=== PATIENT | male | born 1950 | race Caucasian/White ===

== ENCOUNTER → 2024-03-25 | Outpatient (CLI) | payer MEDICARE, OTHER, SELFPAY ==
--- NOTE | 2024-03-25 16:30 | XR_ITS ---
Examination: CT abdomen and pelvis without contrast. Coronal 3-D reconstructions. Sagittal 2-D reconstructions. Date and time of exam:March 25, 2024 1629 hours INDICATIONS: Generalized abdominal pain and constipation beginning one month ago CTDI: vol (mGy): 8.69 DLP: (mGycm): 540 Technique: Axial images of the abdomen have been obtained, 3 mm slice thickness Intravenous contrast material has not been administered. Low dose protocols were performed. One or more of the following dose reduction techniques were used; automated exposure control, adjustment of the mA and/or KV according to patient size, use of iterative reconstruction technique. Findings: Mild enlargement cardiac contour No focal liver or splenic lesions Mild hyperdensities in the gallbladder 2 mm pancreatic calcification No adrenal mass Mild bilateral renal parenchymal scar formation No renal or ureteral calculi Normal appendix No bowel obstruction Colonic diverticulosis, no diverticulitis Contracted urinary bladder with wall thickening up to 17 mm Significant prostatomegaly, 5.8 cm Small fat-containing right inguinal hernia Advanced degenerative disc disease lumbar spine with prominent osteopenia Moderate to advanced hip osteoarthritis IMPRESSION: Recommend hepatobiliary sonography to exclude gallstones Marked thickening of the urinary bladder wall up to 17 mm with significant prostatomegaly 5.8 cm, differential for the bladder wall thickening would include cystitis, urinary tract outflow obstruction secondary to the prostatomegaly, bladder carcinoma less likely but not excluded, clinical correlation advised
== END | disposition home or self-care (01) ==
LOC: CCTX 16:03
PROVIDERS: PCP Family Medicine; Referring Provider Internal Medicine; Visit Provider Internal Medicine
DX: N32.89 Other specified disorders of bladder (principal); N40.0 Benign prostatic hyperplasia without lower urinary tract symptoms
CPT/HCPCS: 74176

== ENCOUNTER → 2024-06-01 | Outpatient (CLI) | payer MEDICARE, OTHER, SELFPAY ==
--- NOTE | 2024-06-01 16:58 | XR_ITS ---
Examination: Bilateral wrists 6 views TECHNIQUE: AP oblique lateral each wrist total 6 views Exam date and time: May 24, 2024 1800 hours INDICATIONS: Bilateral wrist pain 2 months. FINDINGS: Significant osteopenia Left hand advanced narrowing radiocarpal and first carpometacarpal joints No fracture or avascular necrosis Right hand advanced narrowing radiocarpal navicular trapezium first carpometacarpal joints Significant arthritic change second third and fourth metacarpophalangeal joints No acute fracture Soft tissue vascular calcification IMPRESSION: Bilateral significant arthritic change as above
--- NOTE | 2024-06-01 16:58 | XR_ITS ---
Examination: Bilateral hands, 6 views. Technique: AP, Oblique, Lateral each hand total 6 views Date and time of exam: June 01, 2024 1753 hours INDICATIONS: Bilateral hand and wrist pain 2 months Findings: Significant osteopenia Right hand fusion anomalies involving the second third and fourth digits no discrete phalanges Advanced narrowing radiocarpal joint No acute fracture Significant arthritic change involving the metacarpophalangeal joints as well as intercarpal joints Left hand osteoarthritis involving the interphalangeal joints, especially the distal interphalangeal joints second third and fourth digits Advanced arthritic change first carpometacarpal joint Advanced narrowing radiocarpal joint No fracture IMPRESSION: Right hand digit fusion anomalies Significant arthritic change of both hands as above
== END | disposition home or self-care (01) ==
LOC: CDIM 16:48
DX: M25.531 Pain in right wrist (principal); M25.532 Pain in left wrist; M13.842 Other specified arthritis, left hand; M13.841 Other specified arthritis, right hand
CPT/HCPCS: 73110; 73130

== ENCOUNTER 2024-06-15 07:50 | Day surgery (SDC) | payer MEDICARE, OTHER, SELFPAY ==
[2024-06-11 11:33] VITALS: BMI 35.7
[2024-06-11 12:28] LABS: Basophils # (Auto) 0.1 Thou/mm3 (0.0-0.2); Basophils % (Auto) 2 % (0-2.5); Eosinophils # (Auto) 0.2 Thou/mm3 (0.0-0.5); Eosinophils % (Auto) 3 % (0-10); Hematocrit 42.4 % (41.0-53.0); Hemoglobin 14.1 g/dL (13.5-16.0); Immature Granulocytes % (Auto) 0 % (0-0); Immature Granulocytes Auto 0.03 Thou/mm3 (0.00-0.00); Lymphocytes # (Auto) 1.5 Thou/mm3 (1.0-4.8); Lymphocytes % (Auto) 21 % (10-50); Mean Corpuscular HGB Conc 33.3 g/dl (31.0-37.0); Mean Corpuscular Volume 84 fL (80-100); Monocytes # (Auto) 0.7 Thou/mm3 (0.0-0.8); Monocytes % (Auto) 10 % (0-12); Neutrophils # (Auto) 4.6 Thou/mm3 (1.8-7.7); Neutrophils % (Auto) 64 % (37-80); Nucleated Red Blood Cell % 0 /100 WBC (0); Platelet Count 307 Thou/mm3 (140-440); RDW Standard Deviation 42.1 fL (35.1-43.9); Red Blood Count 5.04 Miln/mm3 (4.50-5.90); White Blood Count 7.2 Thou/mm3 (3.8-10.6)
[2024-06-11 12:34] LABS: Prothrombin Time 11.1 Seconds (9.0-12.2)
[2024-06-11 12:37] LABS: Alanine Aminotransferase 12 U/L (10-49); Albumin, Serum 4.3 gm/dL (3.4-4.8); Albumin/Globulin Ratio 1.5 (1.2-2.2); Alkaline Phosphatase 93 U/L (46-116); Anion Gap 7 (7-16); Aspartate Amino Transferase 18 U/L (0-34); BUN/Creatinine Ratio 20 Ratio (12-20); Bilirubin,Total 0.6 mg/dL (0.3-1.2); Blood Urea Nitrogen 20 mg/dL (9-23); Calcium 9.6 mg/dL (8.3-10.6); Calcium (Corrected) 9.6 mg/dL (8.5-10.1); Carbon Dioxide 27.2 mMol/L (20.0-31.0); Chloride 104 mMol/L (98-107); Estimated Creatinine Clearance 80.3 mL/min (>60); Globulin 2.9 gm/dL (2.3-3.5); Glucose 96 mg/dL (74-106); Osmolality,Calculated 278 (275-295); Potassium 4.6 mMol/L (3.4-5.1); Sodium 138 mMol/L (136-145); Total Protein 7.2 gm/dL (5.7-8.2); eGFR > 60 See Note
[2024-06-15] VITALS (7 sets, daily range): BP systolic 122–152; BP diastolic 71–89; PULSE 58–64; RESP 13–20; TEMP 36.2–36.6; O2SAT 94–97; BMI 34.9
[2024-06-15] MEDS: RINGERS LACTATED 1000 ML 1,000 ML 20 ML IV (08:40)
--- NOTE | 2024-06-15 10:43 | SUR.PHASEI ---
1043-Pt. AAOx4, vitals stable, breathing unlabored, no complaint of pain or nausea, dressing to right lower ABD CDI, no active bleed noted, report received from MD Guerin and Karen LOOMIS.
--- NOTE | 2024-06-15 10:51 | PD.SUROPNT ---
Date of Procedure 06/15/24 Pre Op Diagnosis Right inguinal hernia Post Op Diagnosis Indirect right inguinal hernia Procedure Right inguinal hernia repair with mesh Findings Patient was noted to have indirect right inguinal hernia sac Procedure Description Patient brought into the operating room in supine position. After administration of general endotracheal anesthesia, patient's right groin was shaved, prepped and draped in standard surgical manner. The right inguinal crease was anesthetized with half percent Marcaine. An approximately 8 cm incision was made and dissection was carried to subcutaneous tissue. The Clinton's fascia was divided and the external oblique aponeurosis was opened towards the external ring. The hernia sac and the spermatic cord structures were from the posterior aspect of the external oblique aponeurosis at the level of pubic tubercle. The hernia sac was then meticulously dissected off the spermatic cord structures at the level of internal ring. Patient was noted to have indirect right inguinal hernia sac. The hernia sac was then ligated at the level of internal ring. The floor of inguinal canal was then reconstructed with ultra Pro proceed mesh. The mesh was secured with running 2-0 Prolene suture. The mesh secured medially to the pubic tubercle, superiorly into the conjoin tendon, inferiorly and to the shelving edge of inguinal ligament, the mesh was placed around the cord structures and tacked under the external oblique aponeurosis laterally. The area was copiously and thoroughly washed and irrigated, all the fluids were suctioned and the suction fluid returned clear. Hemostasis was adequate and satisfactory. External oblique aponeurosis was closed with running 2-0 Vicryl suture, and Clinton's fascia was closed with interrupted suture using 3-0 Vicryl. The incision was closed with 4-0 Monocryl in subcutaneous fashion. Instruments, needles and sponge counts were reported to be correct ?2. Patient tolerated the procedure well. He was extubated, breathing spontaneously and without difficulty and was transferred to postanesthesia care in stable condition. Anesthesia GETA and local Pathology / specimen Other (Hernia sac) Estimated Blood Loss 10 Condition Stable Disposition PACU Surgeon Rin Ray MD Surgical Staff Operation Date: 06/15/24 10:15 Case Staff Anesthesiologist: Ian Guerin RN First Assistant: Mouna Welch
--- NOTE | 2024-06-15 11:45 | SUR.PHASEII ---
1145: Pt. AAOx4, vitals stable, breathing unlabored, no comlaint of pain or nausea, dressing to ABD CDI, No active bleed noted, pt. tolerated sips of water well, pt. ambulated to wheelchair with steady gait and no assist, no complications. Gave discharge instructions to the pt. and his ride, both verbalized understanding and had no further questions. Pt. left with all personal belongings.
== END 2024-06-15 11:45 | disposition home or self-care (01) ==
PROVIDERS: Anesthesiology; PCP Family Medicine; Referring Provider Surgery; Visit Provider Surgery
PROC: (CPT 49505; principal; 2024-06-15 10:00)
DX: K40.90 Unilateral inguinal hernia, without obstruction or gangrene, not specified as recurrent (principal); I10 Essential (primary) hypertension; I48.91 Unspecified atrial fibrillation
CPT/HCPCS: 49505; 36415; 80053; 85025; 85610; A4217; A4649; C1781; J0690; J1100; J1885; J2250; J2405; J2704; J3010; J3490; J7120

== ENCOUNTER → 2024-07-09 | Outpatient (BNVA) | payer MEDICARE, OTHER, SELFPAY | END | disposition home or self-care (01) | PROVIDERS: PCP Family Medicine; Referring Provider Family Medicine; Visit Provider Urology | DX: N40.1 Benign prostatic hyperplasia with lower urinary tract symptoms (principal); N13.8 Other obstructive and reflux uropathy; N32.89 Other specified disorders of bladder; I10 Essential (primary) hypertension; I25.10 Atherosclerotic heart disease of native coronary artery without angina pectoris; I48.91 Unspecified atrial fibrillation; K21.9 Gastro-esophageal reflux disease without esophagitis | CPT/HCPCS: 81003; 99202; 99212; G0463 ==

== ENCOUNTER → 2024-07-09 | Outpatient (CLI) | payer MEDICARE, OTHER, SELFPAY ==
[2024-07-09 17:03] LABS: Prostate Specific Antigen 1.44 ng/mL (0-4.00)
== END | disposition home or self-care (01) ==
LOC: COPL 15:37
PROVIDERS: PCP Internal Medicine; Referring Provider Urology; Visit Provider Urology
DX: N40.1 Benign prostatic hyperplasia with lower urinary tract symptoms (principal)
CPT/HCPCS: 36415; 84153

== ENCOUNTER → 2024-08-09 | Outpatient (BNVA) | payer MEDICARE, OTHER, SELFPAY | END | disposition home or self-care (01) | PROVIDERS: PCP Family Medicine; Referring Provider Family Medicine; Visit Provider Urology | DX: N40.1 Benign prostatic hyperplasia with lower urinary tract symptoms (principal); N13.8 Other obstructive and reflux uropathy; I10 Essential (primary) hypertension; I48.91 Unspecified atrial fibrillation; K21.9 Gastro-esophageal reflux disease without esophagitis | CPT/HCPCS: 76872 ==

== ENCOUNTER → 2024-09-01 | Outpatient (CLI) | payer MEDICARE, OTHER, SELFPAY ==
--- NOTE | 2024-09-01 07:45 | XR_ITS ---
Examination: MRI right wrist, without contrast Date and time of exam: September 01, 2024 0813 hours INDICATIONS: Wrist pain 10 years loss of function decreased range of motion joint clicking, diagnosis rheumatoid arthritis Technique: Multiple axial sagittal and coronal images of the right wrist have been obtained with the Siemens high-resolution 1.5 Kathryn MRI scanner. Images obtained include T2-weighted fat-suppressed sagittal sections, TR 3500, TE 46, T2 weighted coronal fat suppressed images, TR 3050, TE 84, T2-weighted transverse fat suppressed images, TR 3260, TE 63, proton density transverse images, TR 4720 TE 46, and T1 weighted coronal images, TR 560, TE 13. Findings: Severe osteopenia Severe narrowing radiocarpal joint Severe narrowing first carpometacarpal joint Diffuse narrowing intercarpal joints Marrow edema in the navicular which may relate to the severe joint narrowing No occult fracture Triangular fibrocartilage is thin but appears grossly intact Mild tendinitis diffusely flexor tendons Normal median nerve Significant tendinitis Extensor carpi radialis, extensor carpi radialis brevis, extensor pollicis longus IMPRESSION: Severe osteopenia Severe narrowing radiocarpal joint Severe narrowing first carpometacarpal joint Significant tendinitis extensor carpi ulnaris, extensor carpi radialis brevis, extensor pollicis longus
== END | disposition home or self-care (01) ==
DX: M85.88 Other specified disorders of bone density and structure, other site (principal); M77.8 Other enthesopathies, not elsewhere classified; M25.831 Other specified joint disorders, right wrist
CPT/HCPCS: 73221

== ENCOUNTER → 2024-09-02 | Outpatient (BNVA) | payer MEDICARE, OTHER, SELFPAY | END | disposition home or self-care (01) | PROVIDERS: PCP Family Medicine; Referring Provider Family Medicine; Visit Provider Urology | DX: N40.1 Benign prostatic hyperplasia with lower urinary tract symptoms (principal); R39.12 Poor urinary stream; I10 Essential (primary) hypertension; I48.91 Unspecified atrial fibrillation; K21.9 Gastro-esophageal reflux disease without esophagitis | CPT/HCPCS: 51741; 51798 ==

== ENCOUNTER → 2024-09-06 | Outpatient (BNVA) | payer MEDICARE, OTHER, SELFPAY | END | disposition home or self-care (01) | PROVIDERS: PCP Family Medicine; Referring Provider Family Medicine; Visit Provider Urology | DX: N32.89 Other specified disorders of bladder (principal); N40.1 Benign prostatic hyperplasia with lower urinary tract symptoms; N13.8 Other obstructive and reflux uropathy; I10 Essential (primary) hypertension; I48.91 Unspecified atrial fibrillation; K21.9 Gastro-esophageal reflux disease without esophagitis | CPT/HCPCS: 52000; 81003; 96372; A4217; A4649; C1894; J1580; A9270 ==